=== PATIENT | male | born 1985 | race Caucasian/White ===

== ENCOUNTER 2016-11-22 00:09 | Emergency (ER) | payer OTHER ==
[~2016-11-22 00:09] MED LIST: APRISO0.375 G1 PO; GIAZO1.1 GM PO; METHOTREXATE2.5 M2 PO; PRE20 PO; REMICADE100 MG IV
== END 2016-11-22 00:56 | disposition left against medical advice (07) ==
LOC: ED 00:09
DX: Z53.21 Procedure and treatment not carried out due to patient leaving prior to being seen by health care provider (principal)

== ENCOUNTER 2017-12-23 06:54 | Emergency (ER) | payer OTHER ==
[~2017-12-23] VITALS: Ht 172.7 cm; Wt 62.8 kg
[2017-12-23 07:04] VITALS: Ht 172.7 cm; Wt 62.8 kg
[2017-12-23 07:27] VITALS: BP 104/65
== END 2017-12-23 07:28 | disposition home or self-care (01) ==
LOC: ED 06:54
DX: G89.18 Other acute postprocedural pain (principal); Z88.0 Allergy status to penicillin; Z88.2 Allergy status to sulfonamides